=== PATIENT | female | born 1975 | race American Indian/Alaskan Native ===

== ENCOUNTER 2020-04-27 18:54 | Emergency (ER) | payer SELFPAY ==
[2020-04-27] MEDS ORDERED: Iopamidol 370 76% 125 ML VIAL FS ONE (18:55)
[2020-04-27 19:46] LABS: #Basophils 0.2 thou/uL (0.0-0.2); #Eosinphils 0.2 thou/uL (0.0-0.7); #Monocytes 0.6 thou/uL (0.11-0.59); #Neutrophils 5.2 thou/uL (1.40-6.50); %Basophils 2.3 % (0.0-1.0); %Eosinophils 2.5 % (0.0-10.0); %Lymphocytes 14.3 % (21.0-51.0); %Monocytes 8.2 % (0.0-10.0); %Neutrophils 72.7 % (42.0-75.0); Anisocytosis MODERATE=16-30 cells (100X) (0-5/hpf); Burr Cells SLIGHT = 2-5 cells (100X) (0-1/hpf); Hypochromia MODERATE=16-30 cells (100X) (0-5/hpf); MDiff Complete? YES; Mean Corpuscular Hemoglobin 22.1 pg (27.0-31.0); Mean Corpuscular Volume 73.5 fL (78.0-98.0); Microcytosis SLIGHT = 6-15 cells (100X) (0-5/hpf); Platelet Count 376 thou/uL (130-400); Platelet Morphology Comment Appears Adequate; Red Blood Cell (RBC) Count 4.51 mill/uL (4.20-5.40); White Blood Cell (WBC) Count 7.1 thou/uL (4.8-10.8)
--- NOTE | 2020-04-27 19:47 | RAD ---
Exam: Chest one view HISTORY:Dyspnea. Bilateral lower extremity swelling Comparison: None FINDINGS: Cardiac silhouette:Cardiomegaly. Aorta: Unremarkable Pulmonary vessels: Slightly prominent Costophrenic angles: Small right-sided effusion LUNGS: Elevation the right hemidiaphragm which may represent right lower lobe atelectasis. There is a patchy interstitial opacities likely due to edema, greatest in the right lung base. Pneumothorax: None Osseous abnormalities: None IMPRESSION: 1. Cardiomegaly. Possible congestive heart failure 2. Possible right lower lobe atelectasis with elevation the right hemidiaphragm.
[2020-04-27 19:51] LABS: ALT (SGPT) 47 U/L (8-55); AST (SGOT) 76 U/L (5-34); Albumin 3.3 g/dL (3.5-5.0); Alkaline Phosphatase 91 U/L (40-110); Anion Gap 16 mmol/L (10-20); BUN (Urea Nitrogen) 13 mg/dL (7.0-18.7); Bilirubin, Total 1.4 mg/dL (0.2-1.2); CK (CPK) 245 U/L (29-168); Calc. Creatinine Clearance 0 mL/min (70-130); Calcium 8.5 mg/dL (7.8-10.44); Carbon Dioxide 21 mmol/L (22-29); Chloride 104 mmol/L (98-107); Estimated GFR-MDRD 62; Globulin 3.8 g/dL (2.4-3.5); Glucose 85 mg/dL (70-105); Potassium 3.9 mmol/L (3.5-5.1); Protein, Total 7.1 g/dL (6.0-8.3); Sodium 137 mmol/L (136-145)
[2020-04-27] MEDS ORDERED: Aspirin Chewable 81 MG TAB ONE (20:12)
[2020-04-27] MEDS ORDERED: Furosemide 40 MG/4 ML VIAL ONE (20:12)
[2020-04-27 20:59] LABS: Bilirubin Negative (Negative); Blood, Urine Small (Negative); Glucose, Urine (Dipstick) Negative (Negative); Ketone, Urine Negative (Negative); Leukocyte Small (Negative); Nitrite Positive (Negative); Protein, Urine (Dipstick) 30 mg/dL (Neg-Trace); Specific Gravity, Urine 1.025 (1.005-1.030); pH, Urine 5.5 (5.0-9.0)
[2020-04-27 21:05] LABS: Clarity Cloudy (Clear)
[2020-04-27 21:07] LABS: Bacteria/HPF 4+ HPF (None Seen); Mucous/LPF Rare LPF (<2+)
[2020-04-27] MEDS ORDERED: Sodium Chloride 0.9% 100 ML ONE (21:15)
[2020-04-27] MEDS ORDERED: cefTRIAXone\\ROCEPHIN 1 GM VIAL ONE (21:15)
[2020-04-27] MEDS ORDERED: Nitroglycerin 50 MG/250 ML BOT 0 ML ONE (21:19)
--- NOTE | 2020-04-27 21:23 | CT ---
Exam: CT angiogram of the chest HISTORY: Dyspnea COMPARISON: None TECHNIQUE: CT angiogram of the chest is performed in the axial plane. Three-dimensional reformatted i mages are submitted for interpretation FINDINGS: Mediastinum: No mass, lymphadenopathy or hematoma. HEART: Upper normal heart size. No significant pericardial fluid right heart failure suspected given reflux of contrast into the inferior vena cava Aorta: Normal caliber aorta. No aneurysm, dissection or periaortic fat stranding Upper solid abdominal viscera: There is perihepatic free fluid. Hypoattenuation liver suggesting hepa tic steatosis. Trachea and central bronchi: Patent Pleural spaces: Large right pleural effusion. Lung parenchyma: Dependent atelectatic changes in the right lower lobe. Scarring and atelectasis in t he left lower lobe. Minimal groundglass opacities in the left and right upper lobe and middle lobe. Pneumothorax: None Osseous structures: No lytic or blastic lesions Soft tissue structures: Diffuse edema. Correlate for anasarca. Pulmonary arteries: Adequate contrast opacification pulmonary arterial system to the level of segment al arteries. No filling defect to suggest pulmonary embolism IMPRESSION: 1. Large right-sided pleural effusion. 2. No evidence of pulmonary artery embolism to the level of the segmental arteries. 3. Perihepatic fluid. 4. Soft tissue edema, compatible with anasarca. 5. Reflux of contrast into the inferior vena cava. Correlate for right heart failure.
== END 2020-04-27 22:31 | disposition short-term general hospital (02) ==
LOC: MADERS 18:54
DX: I11.0 Hypertensive heart disease with heart failure (principal); I50.9 Heart failure, unspecified; N39.0 Urinary tract infection, site not specified; K76.9 Liver disease, unspecified
CPT/HCPCS: 71045; 71275; 80053; 81003; 81015; 82550; 83880; 84443; 84484; 85025; 87077; 87086; 87186; 93005; 96365; 96375; J0696; J1940; J3490; Q9967

== ENCOUNTER 2025-08-07 21:00 | Emergency (ER) | payer OTHER, SELFPAY ==
[~2025-08-07 21:00] MED LIST: Iopamidol 370 76% 100 ML VIAL ONE
[2025-08-07] MEDS ORDERED: Furosemide 40 MG (4 mL) VIAL ONE (21:20)
[2025-08-07] MEDS ORDERED: Nitroglycerin 0.4 MG TAB 1 EACH ONE (21:20)
[2025-08-07] MEDS ORDERED: Aspirin Chewable 81 MG TAB ONE (21:30)
[2025-08-07 21:33] LABS: #Basophils 0.1 thou/uL (0.0-0.2); #Eosinophils 0.0 thou/uL (0.0-0.7); #Lymphocytes 0.7 thou/uL (1.20-3.40); #Monocytes 0.6 thou/uL (0.11-0.59); #Neutrophils 9.4 thou/uL (1.40-6.50); %Basophils 0.8 % (0.0-1.0); %Eosinophils 0.0 % (0.0-10.0); %Lymphocytes 6.6 % (21.0-51.0); %Monocytes 5.8 % (0.0-10.0); %Neutrophils 86.8 % (42.0-75.0); Hematocrit 50.4 % (36.0-47.0); Hemoglobin 15.3 g/dL (12.0-16.0); INR-International Normal Ratio 1.4; Mean Corpuscular Hemoglobin 28.8 pg (27.0-31.0); Mean Corpuscular Volume 95.2 fl (78.0-98.0); Platelet Count 325 10x3/uL (130-400); Prothrombin Time 16.8 sec (12.0-14.7); Red Blood Cell (RBC) Count 5.30 mill/uL (4.20-5.40); White Blood Cell (WBC) Count 10.8 10x3/uL (4.8-10.8)
[2025-08-07 21:34] LABS: PTT 29.3 sec (22.9-36.1)
[2025-08-07 21:43] LABS: Digoxin Less than 0.15 ng/mL (0.8-2.0)
[2025-08-07 21:46] LABS: ALT (SGPT) 291 U/L (Less than 34); AST (SGOT) 536 U/L (11-34); Albumin 3.7 g/dL (3.1-4.5); Alkaline Phosphatase 134 U/L (40-110); Anion Gap 26 mmol/L (10-20); BUN (Urea Nitrogen) 22 mg/dL (7.0-18.7); Bilirubin, Total 2.7 mg/dL (0.3-1.2); Calc. Creatinine Clearance 0 mL/min (70-130); Calcium 9.5 mg/dL (7.8-10.44); Carbon Dioxide 11 mmol/L (22-29); Chloride 112 mmol/L (98-107); Globulin 4.7 g/dL (2.4-3.5); Glucose 71 mg/dL (70-105); Potassium 4.5 mmol/L (3.5-5.1); Sodium 144 mmol/L (136-145)
[2025-08-07 21:47] LABS: Troponin I 0.024 ng/mL (< 0.028)
[2025-08-07 21:49] LABS: Bicarbonate (HCO3v) 14.7 mmol/L (22.0-28.0); CO2 Tension (PvCO2) 30.8 mmHg (42.0-51.0); Calcium, Ionized 1.16 mmol/L (1.15-1.33); Chloride 117 mmol/L (98-107); Hemoglobin - Calc 15.0 g/dL (12.0-16.0); Potassium 4.4 mmol/L (3.5-5.1); Sodium 140 mmol/L (138-145); T. Carbon Dioxide 15.7 mmol/L (22.0-28.0); vO2 Saturation-calc 99.6 % (60.0-85.0)
[2025-08-07 22:16] LABS: Acetaminophen Less than 10 mcg/mL (Less than 10); Salicylate Less than 8.0 mg/dL (Less than 8.0)
[2025-08-07] MEDS ORDERED: Digoxin 0.125 MG TAB PO SCH (22:30)
[2025-08-07] MEDS ORDERED: Nitroglycerin 50 MG/250 ML BOT 250 ML ONE (22:32)
[2025-08-08 12:58] LABS: Hep A IgM AB NONREACTIVE (NonReactive); Hep A IgM S/CO 0.20 S/CO (0-0.79); Hep B Core IgM Index 0.44 S/CO (0-0.79); Hep B Surf Ag NONREACTIVE S/CO (NonReactive); Hep C IgG Ab NONREACTIVE S/CO (NonReactive); Hep C Index 0.15 S/CO (0-0.79)
== END 2025-08-07 22:56 | disposition short-term general hospital (02) ==
LOC: MADERS 21:00
DX: J96.01 Acute respiratory failure with hypoxia (principal); K83.1 Obstruction of bile duct; E87.20 Acidosis, unspecified; R74.01 Elevation of levels of liver transaminase levels; I50.9 Heart failure, unspecified; Z79.82 Long term (current) use of aspirin
CPT/HCPCS: 36415; 71045; 71275; 74176; 80053; 80074; 80162; 80307; 82330; 82435; 82803; 83605; 83690; 83880; 84132; 84295; 84484; 85014; 85025; 85610; 85730; 87040; 87428; 93005; 94760; 96374; 96375; J1940; Q9967